=== PATIENT | male | born 1990 | race Caucasian/White ===

== ENCOUNTER 2016-11-23 13:04 | Emergency (ER) | payer MEDICARE, MEDICAID ==
[2016-11-23 13:10] VITALS: TEMP 98; O2SAT 99
--- NOTE | 2016-11-23 14:29 | ED PDOC ---
HPI: General Adult Time Seen by Provider: 11/23/16 13:52 Chief Complaint (Nursing): ENT Problem Chief Complaint (Provider): difficulty swallowing History Per: Patient (26 y/o male h/o schizophrenia sent by [facility] for evaluation of difficulty swallowing saliva. Denies any sore throat/fevers/ chills. Has been able to drink water without difficulty. Is on zyprexa otherwise.) Past Medical History Reviewed: Historical Data, Nursing Documentation, Vital Signs Vital Signs: Last Vital Signs Temp 98.0 F 11/23/16 13:07 Pulse 100 H 11/23/16 13:07 Resp 18 11/23/16 13:07 BP 132/92 H 11/23/16 13:07 Pulse Ox 99 11/23/16 14:29 - Medical History PMH: Anxiety, Bipolar Disorder, Depression, Schizophrenia Denies: Diabetes (pt denied), Hepatitis (pt denied), HIV (pt denied), HTN ( pt denied), Chronic Kidney Disease, Seizures (pt denied), Sexually Transmitted Disease (pt denied) - Family History Family History: States: Unknown Family Hx - Immunization History Hx Tetanus Toxoid Vaccination: No Hx Influenza Vaccination: No Hx Pneumococcal Vaccination: No - Home Medications Home Medications: Ambulatory Orders Medication Instructions Recorded Citalopram [celEXA] 20 mg PO DAILY 09/30/15 [place] Carbonate [[place] 300 mg PO DAILY 09/30/15 Carbonate 300MG] [place] Carbonate [[place] 600 mg PO DAILY 09/30/15 Carbonate] Paliperidone [Invega] 3 mg PO DAILY 09/30/15 - Allergies Allergies/Adverse Reactions: Allergies Allergy/AdvReac Type Severity Reaction Status Date / Time No Known Allergies Allergy Verified 11/23/16 14:05 Review of Systems ROS Statement: Except As Marked, All Systems Reviewed And Found Negative Physical Exam - Reviewed Nursing Documentation Reviewed: Yes Vital Signs Reviewed: Yes - Physical Exam Appears: Positive for: Well, Non-toxic, No Acute Distress Head Exam: Positive for: ATRAUMATIC, NORMAL INSPECTION, NORMOCEPHALIC Skin: Positive for: Normal Color, Warm, DRY Eye Exam: Positive for: EOMI, Normal appearance, PERRL ENT: Positive for: Normal ENT Inspection Neck: Positive for: Normal, Painless ROM Cardiovascular/Chest: Positive for: Regular Rate, Rhythm Respiratory: Positive for: CNT, Normal Breath Sounds Gastrointestinal/Abdominal: Positive for: Normal Exam, Bowel Sounds, Soft Back: Positive for: Normal Inspection Extremity: Positive for: Normal ROM Neurologic/Psych: Positive for: Alert, Oriented - Laboratory Results Result Diagrams: 11/23/16 15:11 11/23/16 15:11 - ECG O2 Sat by Pulse Oximetry: 99 - Progress ED Course And Treament: strep A neg Patient tolerating fluids in ED Soft tissue xry: negative for acute findings. Disposition - Clinical Impression Clinical Impression: Difficulty swallowing - Patient ED Disposition Is Patient to be Admitted: No - Disposition Referrals: Pedro Hicks MD [Staff Provider] - Disposition: Routine/Home Disposition Time: 16:50 Condition: FAIR Instructions: Dysphagia (ED)
[2016-11-23 15:20] LABS: BASO # 0.1 K/uL (0.0-0.2); BASO % 0.8 % (0.0-2.0); EOS # 0.2 K/uL (0.0-0.7); EOS % 2.4 % (0.0-4.0); HEMATOCRIT 41.9 % (35.0-51.0); LYMPH # 3.6 K/uL (1.0-4.3); LYMPH % 37.5 % (20.0-40.0); MEAN CORPUSCULAR HEMOGLOBIN 28.3 pg (27.0-31.0); MEAN CORPUSCULAR HGB CONC 33.2 g/dL (33.0-37.0); MEAN PLATELET VOLUME 7.8 fl (7.2-11.7); MONO # 0.7 K/uL (0.0-0.8); MONO % 7.6 % (0.0-10.0); NEUT % 51.7 % (50.0-75.0); NRBC % 0.2 % (0.0-0.0); RED CELL DISTRIBUTION WIDTH 13.9 % (11.5-14.5); WHITE BLOOD COUNT 9.6 K/uL (4.8-10.8)
[2016-11-23 15:26] LABS: MEAN CELL VOLUME 85.1 fl (80.0-94.0)
[2016-11-23 15:30] LABS: BLOOD UREA NITROGEN 11 mg/dl (9-20); CARBON DIOXIDE 26 mmol/L (22-30); CHLORIDE 102 mmol/L (98-107); GFR AFRICAN-AMERICAN > 60; GLUCOSE,RANDOM 93 mg/dL (75-110); SODIUM 137 mmol/l (132-148)
[2016-11-23 15:32] LABS: POTASSIUM 4.1 MMOL/L (3.6-5.0)
--- NOTE | 2016-11-23 16:23 | RAD ---
PROCEDURE: Soft tissue neck HISTORY: difficulty with swallowing COMPARISON: None TECHNIQUE: Standard protocol for this study/examination. FINDINGS: No prevertebral or paravertebral soft tissue abnormalities. No visualized/radiopaque foreign body IMPRESSION: No significant or acute findings to account for/ related to the clinical presentation.
[2016-11-23 17:12] VITALS: BP 133/70; PULSE 82; RESP 20
== END 2016-11-23 17:26 | disposition home or self-care (01) ==
LOC: H.ER 13:04
DX: R13.10 Dysphagia, unspecified (principal); F20.9 Schizophrenia, unspecified

== ENCOUNTER 2017-09-16 20:58 | Emergency (ER) | payer MEDICARE, MEDICAID ==
[2017-09-16 21:22] VITALS: BP 137/92; PULSE 80; RESP 18; TEMP 98.8; O2SAT 98
--- NOTE | 2017-09-16 22:15 | ED PDOC ---
HPI: Headache Chief Complaint (Provider): Frontal headache Additional History Per: Patient Additional Complaint(s): This is 27 y/o male with pmh of bipolar, anxiety, depression and schizophrenia comes to the ED c/o 7 days history of frontal headache which started after he got his teeth braces fixed. Pain comes and goes, can last up to few hours, pressure like, 8/10 severity, nonradiating, Advil didnt help at home, phonophobia but denies photophobia. Pain is associated with nausea, drowsiness, denies vomiting, visual changes, neck stiffness, runny nose, cough, ear pain, sob or chest pain. Patient is taking few psych medications. <Jeanine Barcenas - Last Filed: 09/17/17 00:16> <Bianca Casas - Last Filed: 09/17/17 17:29> Time Seen by Provider: 09/16/17 21:25 Chief Complaint (Nursing): Headache Supervising Attending Note - Supervising Attending Note The Documented history was done by the: Physician Private Watchman, Attending Physician The documented physical exam was done by the: Physician Private Watchman, Attending Physician - Attestation: I have personally seen and examined this patient.: Yes I have fully participated in the care of the patient.: Yes I have reviewed all pertinent clinical information: Yes <Bianca Casas - Last Filed: 09/17/17 17:29> Past Medical History Reviewed: Vital Signs Vital Signs: Last Vital Signs Temp 98.8 F 09/16/17 21:20 Pulse 80 09/16/17 21:20 Resp 18 09/16/17 21:20 BP 137/92 H 09/16/17 21:20 Pulse Ox 98 09/16/17 21:20 - Medical History PMH: Anxiety, Bipolar Disorder, Depression, Schizophrenia Denies: Diabetes (pt denied), Hepatitis (pt denied), HIV (pt denied), HTN ( pt denied), Chronic Kidney Disease, Seizures (pt denied), Sexually Transmitted Disease (pt denied) - Surgical History Surgical History: Denies: Appendectomy - Family History Family History: States: No Known Family Hx - Living Arrangements Living Arrangements: With Family - Social History Current smoker - smoking cessation education provided: No Ex-Smoker (has not smoked in the last 12 months): Yes Alcohol: None Drugs: Denies - Immunization History Hx Tetanus Toxoid Vaccination: No Hx Influenza Vaccination: No Hx Pneumococcal Vaccination: No <Jeanine Barcenas - Last Filed: 09/17/17 00:16> Vital Signs: Last Vital Signs Temp 98.8 F 09/16/17 21:20 Pulse 80 09/16/17 21:20 Resp 18 09/16/17 21:20 BP 137/92 H 09/16/17 21:20 Pulse Ox 98 09/17/17 00:16 <Bianca Casas - Last Filed: 09/17/17 17:29> - Home Medications Home Medications: Ambulatory Orders Medication Instructions Recorded Citalopram [celEXA] 20 mg PO DAILY 09/30/15 [place] Carbonate [[place] 300 mg PO DAILY 09/30/15 Carbonate 300MG] [place] Carbonate [[place] 600 mg PO DAILY 09/30/15 Carbonate] Paliperidone [Invega] 3 mg PO DAILY 09/30/15 Acetaminophen/Butalbital/Caf 1 tab PO TID PRN #20 tab 09/16/17 [Fioricet] Naproxen [Naprosyn] 1 tab PO BID PRN #30 tab 09/16/17 - Allergies Allergies/Adverse Reactions: Allergies Allergy/AdvReac Type Severity Reaction Status Date / Time No Known Allergies Allergy Verified 11/23/16 14:05 Review of Systems Constitutional: Negative for: Fever Eyes: Negative for: Pain, Vision Change ENT: Negative for: Ear Pain Cardiovascular: Negative for: Chest Pain Respiratory: Negative for: Cough, Shortness of Breath Gastrointestinal: Positive for: Nausea. Negative for: Vomiting, Abdominal Pain Genitourinary Male: Negative for: Dysuria, Incontinence Musculoskeletal: Negative for: Neck Pain, Shoulder Pain Skin: Negative for: Rash Neurological: Negative for: Weakness, Numbness, Confusion <Jeanine Barcenas - Last Filed: 09/17/17 00:16> Physical Exam - Physical Exam Appears: Positive for: Well Head Exam: Positive for: ATRAUMATIC, NORMAL INSPECTION, NORMOCEPHALIC (no tenderness ) Skin: Positive for: Normal Color Eye Exam: Positive for: Normal appearance, EOMI, PERRL ENT: Positive for: Normal ENT Inspection Neck: Positive for: Normal, Painless ROM Cardiovascular/Chest: Positive for: Regular Rate, Rhythm, Chest Non Tender. Negative for: Edema, JVD, Murmur Respiratory: Positive for: Normal Breath Sounds Gastrointestinal/Abdominal: Positive for: Normal Exam Neurologic/Psych: Positive for: Alert, solidworks drafter II-XII, Oriented. Negative for: Motor/Sensory Deficits <Jeanine Barcenas - Last Filed: 09/17/17 00:16> - Laboratory Results Result Diagrams: 09/16/17 23:00 09/16/17 23:00 - ECG O2 Sat by Pulse Oximetry: 98 - Progress ED Course And Treament: 27 y/o male with headache for 7 days - CBC, CMP, Mg and Phos - [place] level - Tylenol 975mg - Toradol 15mg - Reevaluation Case discussed with Dr. Casas CBC, CMP reviewed, unremarkable [place] 0.5 L, discussed with patient Re-evaluation Time: 23:35 Condition: Improved <Jeanine Barcenas - Last Filed: 09/17/17 00:16> - Laboratory Results Result Diagrams: 09/16/17 23:00 09/16/17 23:00 <Bianca Casas - Last Filed: 09/17/17 17:29> Medical Decision Making Medical Decision Making: Headache <Jeanine Barcenas - Last Filed: 09/17/17 00:16> Disposition - Patient ED Disposition Is Patient to be Admitted: No - Disposition Disposition Time: 00:15 <Jeanine Barcenas - Last Filed: 09/17/17 00:16> <Bianca Casas - Last Filed: 09/17/17 17:29> - Clinical Impression Clinical Impression: Acute headache - Disposition Referrals: [facility] [Provider Group] - 09/18/17 Condition: IMPROVED Additional Instructions: PLEASE FOLLOW UP WITH YOUR DOCTOR IN 2-3 DAYS CONTINUE YOUR REGULAR MEDICATIONS PRESCRIBED RETURN TO ER FOR WORSENING SYMPTOMS Prescriptions: Acetaminophen/Butalbital/Caf [Fioricet] 1 tab PO TID PRN #20 tab PRN Reason: SEVERE HEADACHE ONLY Naproxen [Naprosyn] 1 tab PO BID PRN #30 tab PRN Reason: Headache Instructions: Acute Headache (ED)
[2017-09-16 23:19] LABS: BLOOD UREA NITROGEN 13 mg/dl (9-20); GFR AFRICAN-AMERICAN > 60; GFR NON-AFRICAN AMERICAN > 60
[2017-09-16 23:20] LABS: ALB/GLOB RATIO 1.4 (1.0-2.1); ALBUMIN 4.5 g/dL (3.5-5.0); ALT/SGPT 30 U/L (21-72); AST/SGOT 23 U/L (17-59); CALCIUM 9.7 mg/dL (8.4-10.2); MAGNESIUM 2.1 MG/DL (1.6-2.3)
[2017-09-16 23:25] LABS: BASO # 0.1 K/uL (0.0-0.2); BASO % 0.6 % (0.0-2.0); EOS # 0.1 K/uL (0.0-0.7); HEMOGLOBIN 13.4 g/dL (12.0-18.0); LYMPH # 3.6 K/uL (1.0-4.3); MEAN CELL VOLUME 88.5 fl (80.0-94.0); MEAN CORPUSCULAR HEMOGLOBIN 29.3 pg (27.0-31.0); MEAN CORPUSCULAR HGB CONC 33.1 g/dL (33.0-37.0); MEAN PLATELET VOLUME 9.1 fl (7.2-11.7); MONO # 0.7 K/uL (0.0-0.8); MONO % 7.3 % (0.0-10.0); NEUT % 53.1 % (50.0-75.0); NRBC % 0.1 % (0.0-0.0); RBC 4.59 Mil/uL (4.40-5.90); RED CELL DISTRIBUTION WIDTH 13.7 % (11.5-14.5); WHITE BLOOD COUNT 9.4 K/uL (4.8-10.8)
== END 2017-09-17 00:07 | disposition home or self-care (01) ==
LOC: H.ER 20:58
DX: R51 Headache (principal); F20.9 Schizophrenia, unspecified; F31.9 Bipolar disorder, unspecified; F41.9 Anxiety disorder, unspecified
CPT/HCPCS: 80053; 80178; 83735; 84100; 85025; 96374; 99283; J1885

== ENCOUNTER 2017-12-05 16:47 | Emergency (ER) | payer MEDICARE, MEDICAID ==
[2017-12-05 16:56] VITALS: BP 143/88; PULSE 88; RESP 20; TEMP 98; O2SAT 97
--- NOTE | 2017-12-05 18:11 | ED PDOC ---
HPI: Psych/Substance Abuse Time Seen by Provider: 12/05/17 17:02 Chief Complaint (Nursing): Psychiatric Evaluation Chief Complaint (Provider): Psychiatric Evaluation History Per: Patient History/Exam Limitations: no limitations Onset/Duration Of Symptoms: Mins Current Symptoms Are (Timing): Still Present Suicide/Self Injury Attempted (Context): None Associated Symptoms: Depression. denies: Suicidal Thoughts, Suicidal Plan Additional Complaint(s): 27 year old male presents to the ED for psychiatric evaluation due to aggressive behavior worsening since September. Patient states the family is concerned because he has been exhibiting more aggressive behavior. Patient reports he has a history of Bipolar Type Two Disorder and Schizoaffective disorders but is complaint with medication. In September, patient reports he found out that the girl he is in love with is getting and it constantly upsets him because he [facility] basis. Patient states his mother was invited to the bridal shower and when he thinks about this he becomes more aggressive. Patient also reports he is upset about putting on a lot of weight recently and feels like he looks like "Benjamin". Today, patient told his mother he wants to have a girlfriend and the mother replied that he should get his act together, thus causing him to act aggressive and EMS was called to bring patient to ED. Denies suicidal and homicidal ideation, suicidal attempts in the past, hallucinations, and physical complaints. Past Medical History Vital Signs: Last Vital Signs Temp 98.0 F 12/05/17 16:52 Pulse 88 12/05/17 16:52 Resp 20 12/05/17 16:52 BP 143/88 12/05/17 16:52 Pulse Ox 97 12/05/17 16:52 - Medical History PMH: Anxiety, Bipolar Disorder, Depression, Schizophrenia - Surgical History Surgical History: Denies: Appendectomy - Family History Family History: States: Unknown Family Hx - Social History Current smoker - smoking cessation education provided: No Drugs: Denies - Home Medications Home Medications: Ambulatory Orders Medication Instructions Recorded Citalopram [celEXA] 20 mg PO DAILY 09/30/15 [place] Carbonate [[place] 300 mg PO DAILY 09/30/15 Carbonate 300MG] [place] Carbonate [[place] 600 mg PO DAILY 09/30/15 Carbonate] Paliperidone [Invega] 3 mg PO DAILY 09/30/15 Acetaminophen/Butalbital/Caf 1 tab PO TID PRN #20 tab 09/16/17 [Fioricet] Naproxen [Naprosyn] 1 tab PO BID PRN #30 tab 09/16/17 - Allergies Allergies/Adverse Reactions: Allergies Allergy/AdvReac Type Severity Reaction Status Date / Time No Known Allergies Allergy Verified 12/05/17 16:52 Review of Systems ROS Statement: Except As Marked, All Systems Reviewed And Found Negative Psych: Positive for: Depression. Negative for: Suicidal ideation Physical Exam - Reviewed Nursing Documentation Reviewed: Yes Vital Signs Reviewed: Yes - Physical Exam Comments: GENERAL APPEARANCE: Patient is awake, alert, oriented x 3, in no acute distress. SKIN: Warm, dry; (-) cyanosis EYES: (-) conjunctival pallor, (-) scleral icterus, (-) nystagmus. ENMT: Mucous membranes moist. Airway patent: (-) stridor. NECK: Supple, FROM (-) tenderness, (-) stiffness, (-) lymphadenopathy. CHEST AND RESPIRATORY: (-) rales, (-) rhonchi, (-) wheezes; breath sounds equal. ABDOMEN: Soft, (-) distention, (-) tenderness, (-) guarding. NEURO AND PSYCH: Mental status as above. Affect: Flat, calm, and cooperative. nurse research: grossly intact. Pupils equal and reactive; EOMI; (-) facial asymmetry; tongue and uvula midline. Strength symmetric. - ECG O2 Sat by Pulse Oximetry: 97 (RA) Pulse Ox Interpretation: Normal Medical Decision Making Medical Decision Making: Clinical impression: Psychiatric Evaluation Time: 1742 Plan: -- Crisis Evaluation 1899 Per crisis evaluation, patient to be discharged with the diagnosis of Schizoaffective disorder, Bipolar Type II per Dr Olmstead. On exam, patient remains AAOx3, in no acute distress. On exam, neck is supple, lungs CTA, cardiac RRR, abdomen is soft and non-tender, neuro exam shows no focal findings. Diagnostic results d/w the patient in great detail. Dx of Schizoaffective disorder, Bipolar Type II d/w the patient. Based on history, exam and diagnostic results plan will be for discharge and outpatient follow up. Advised to follow up with primary care physician in 1-2 days without fail. Return to the emergency room at any time for any new or worsening symptoms. Patient states he fully agrees with and understands discharge instructions. States that he agrees with the plan and disposition. Verbalized and repeated discharge instructions and plan. I have given the patient opportunity to ask any additional questions. Scribe Attestation: Documented by Ayden Bronson, acting as a scribe for Misa Solomon PA-C. Provider Scribe Attestation: All medical record entries made by the Scribe were at my direction and personally dictated by me. I have reviewed the chart and agree that the record accurately reflects my personal performance of the history, physical exam, medical decision making, and the department course for this patient. I have also personally directed, reviewed, and agree with the discharge instructions and disposition. Disposition - Clinical Impression Clinical Impression: Bipolar disorder, Schizoaffective disorder - Patient ED Disposition Is Patient to be Admitted: No Counseled Patient/Family Regarding: Diagnosis, Need For Followup - Disposition Referrals: [facility] [Outside] [facility] [Outside] Disposition: Routine/Home Disposition Time: 19:06 Condition: FAIR Instructions: Bipolar Disorder, Schizoaffective Disorder Forms: [employer] (Lithuanian) Print Language: CROATIAN - POA Present On Arrival: None
== END 2017-12-05 20:46 | disposition home or self-care (01) ==
LOC: H.ER 16:47
DX: F31.9 Bipolar disorder, unspecified (principal); F25.9 Schizoaffective disorder, unspecified; F41.9 Anxiety disorder, unspecified

== ENCOUNTER 2017-12-22 20:15 | Emergency (ER) | payer MEDICARE, MEDICAID ==
[2017-12-22 20:27] VITALS: BP 149/87; PULSE 84; RESP 16; TEMP 97.5; O2SAT 98
--- NOTE | 2017-12-22 21:30 | ED PDOC ---
HPI: Psych/Substance Abuse Time Seen by Provider: 12/22/17 20:28 Chief Complaint (Nursing): Psychiatric Evaluation Chief Complaint (Provider): Psychiatric Evaluation History Per: Patient, Family (mother) History/Exam Limitations: no limitations Onset/Duration Of Symptoms: Days (x1) Current Symptoms Are (Timing): Still Present Additional Complaint(s): 27 year old male with medical history of anxiety, bipolar disorder and schizophrenia, presents to the emergency department with mother for an evaluation of dry mouth status post recent change in Seroquel dosage. He denies any shortness of breath, chest pain or rash. Patient states that he saw a new psychiatrist on 12/18/17 who advised taking Seroquel 200mg in the morning and 400mg at night, as patient became increasingly impulsive. Normally he only takes 400mg at night. He states impulsions resolved and "felt great" since starting new Seroquel regimen. Upon the following day, patient reports having dry mouth and contacted his doctor but did not receive a response until yesterday, in which, she recommended Seroquel 100mg in the morning and 400mg before bed. Currently, mother reports that patient seems more stable and happier. Psychiatrist: Ela Sahni MD Past Medical History Reviewed: Historical Data, Nursing Documentation, Vital Signs Vital Signs: Last Vital Signs Temp 97.5 F L 12/22/17 20:22 Pulse 84 12/22/17 20:22 Resp 16 12/22/17 20:22 BP 149/87 12/22/17 20:22 Pulse Ox 98 12/22/17 20:22 - Medical History PMH: Anxiety, Bipolar Disorder, Depression, Schizophrenia Denies: Diabetes (pt denied), Hepatitis (pt denied), HIV (pt denied), HTN ( pt denied), Chronic Kidney Disease, Seizures (pt denied), Sexually Transmitted Disease (pt denied) - Surgical History Surgical History: Denies: Appendectomy - Family History Family History: States: Unknown Family Hx - Social History Current smoker - smoking cessation education provided: No Alcohol: None Drugs: Denies - Immunization History Hx Tetanus Toxoid Vaccination: No Hx Influenza Vaccination: No Hx Pneumococcal Vaccination: No - Home Medications Home Medications: Ambulatory Orders Medication Instructions Recorded Citalopram [celEXA] 20 mg PO DAILY 09/30/15 [place] Carbonate [[place] 300 mg PO DAILY 09/30/15 Carbonate 300MG] [place] Carbonate [[place] 600 mg PO DAILY 09/30/15 Carbonate] Paliperidone [Invega] 3 mg PO DAILY 09/30/15 Acetaminophen/Butalbital/Caf 1 tab PO TID PRN #20 tab 09/16/17 [Fioricet] Naproxen [Naprosyn] 1 tab PO BID PRN #30 tab 09/16/17 - Allergies Allergies/Adverse Reactions: Allergies Allergy/AdvReac Type Severity Reaction Status Date / Time No Known Allergies Allergy Verified 12/05/17 16:52 Review of Systems ROS Statement: Except As Marked, All Systems Reviewed And Found Negative ENT: Positive for: Other (dry mouth) Psych: Positive for: Other ("feeling great") Physical Exam - Reviewed Nursing Documentation Reviewed: Yes Vital Signs Reviewed: Yes - Physical Exam Appears: Positive for: Well, Non-toxic, No Acute Distress Skin: Positive for: Normal Color, Warm. Negative for: Rash ENT: Positive for: Normal ENT Inspection, Pharynx Is (within normal limits with moist mucous membranes; able to swallow saliva without difficulty). Negative for: Pharyngeal Erythema, Tonsillar Exudate, Tonsillar Swelling Cardiovascular/Chest: Positive for: Regular Rate, Rhythm Respiratory: Positive for: Normal Breath Sounds Neurologic/Psych: Positive for: Alert (x3), Oriented, Mood/Affect (happy, calm and cooperative), Other (speaking full sentences). Negative for: Motor/Sensory Deficits, Aphasia - ECG O2 Sat by Pulse Oximetry: 98 (RA) Pulse Ox Interpretation: Normal Medical Decision Making Medical Decision Making: Initial Impression: Medication side effects Pt. advised to use OTC Biotene and to contact Dr. Sahni tomorrow for further evaluation. Denies SI/HI, hallucinations. Advised to return to ED immediately if symptoms worsen or any mood changes occur. Both pt. and mother agree to plan. Scribe Attestation: Documented by Ginny Trujillo, acting as a scribe for Johnny Ha PA-C. Provider Scribe Attestation: All medical record entries made by the Scribe were at my direction and personally dictated by me. I have reviewed the chart and agree that the record accurately reflects my personal performance of the history, physical exam, medical decision making, and the department course for this patient. I have also personally directed, reviewed, and agree with the discharge instructions and disposition. Disposition - Clinical Impression Clinical Impression: Medication side effect - Patient ED Disposition Is Patient to be Admitted: No Counseled Patient/Family Regarding: Diagnosis - Disposition Referrals: [facility] [Outside] Disposition: Routine/Home Disposition Time: 21:07 Condition: STABLE Additional Instructions: Take Biotene as directed Contact Dr. Sahni for further evaluation. Return to ED immediately if symptoms worsen. Instructions: Side Effects From Medicines Forms: [employer] (Kuwaiti) Print Language: BELARUSIAN
== END 2017-12-22 21:07 | disposition home or self-care (01) ==
LOC: H.ER 20:15
DX: R68.2 Dry mouth, unspecified (principal); Z86.59 Personal history of other mental and behavioral disorders; Z00.8 Encounter for other general examination

== ENCOUNTER 2018-02-24 18:23 | Inpatient (IN) | payer MEDICARE, MEDICAID ==
--- NOTE | 2018-02-24 18:51 | ED PDOC ---
HPI: Psych/Substance Abuse Time Seen by Provider: 02/24/18 18:41 Chief Complaint (Nursing): Psychiatric Evaluation Chief Complaint (Provider): crisis eval History Per: Patient Additional Complaint(s): 27 y/o M with history of bipolar disorder and depression presents to ED for crisis eval. He states he is increasingly depressed and feels more agitated lately despite taking all of his psych meds which include Abilify, Seroquel, clonazepam and lithium. Patient denies suicidal or homicidal ideation. He denies alcohol or drug use. PMD: Dr. Eduardo Psychiatrist: Dr. Sahni Past Medical History Reviewed: Historical Data, Nursing Documentation, Vital Signs Vital Signs: Last Vital Signs Temp 98 F 02/24/18 18:28 Pulse 88 02/24/18 18:28 Resp 20 02/24/18 18:28 BP 147/77 02/24/18 18:28 Pulse Ox 100 02/24/18 18:28 - Medical History PMH: Anxiety, Bipolar Disorder, Depression, Schizophrenia - Surgical History Surgical History: No Surg Hx, Endoscopy Other surgeries: Left shoulder surgery, right ankle surgery, wisdom tooth extraction - Family History Family History: States: No Known Family Hx - Living Arrangements Living Arrangements: With Family - Social History Current smoker - smoking cessation education provided: No Alcohol: None Drugs: Denies - Home Medications Home Medications: Ambulatory Orders Medication Instructions Recorded Aripiprazole [Abilify] 20 mg PO HS 02/24/18 Clonazepam [Klonopin] 0.5 mg PO BID 02/24/18 [place] Carbonate [[place] 300 tab PO TID 02/24/18 Carbonate 300MG] Multivit-Minerals/FA/Lycopene [One 1 each PO DAILY 02/24/18 Daily For Men Tablet] [id number] Ethyl Esters 1 GM 1 gm PO DAILY 02/24/18 [Lovaza] QUEtiapine [SEROquel XR] 50 mg PO HS 02/24/18 buPROPion SR [Wellbutrin SR] 100 mg PO DAILY 02/24/18 - Allergies Allergies/Adverse Reactions: Allergies Allergy/AdvReac Type Severity Reaction Status Date / Time No Known Allergies Allergy Verified 02/24/18 18:28 Review of Systems ROS Statement: Except As Marked, All Systems Reviewed And Found Negative Psych: Positive for: Depression, Other (agitation). Negative for: Psychosis, Suicidal ideation Physical Exam - Reviewed Nursing Documentation Reviewed: Yes Vital Signs Reviewed: Yes - Physical Exam Appears: Positive for: Well, Non-toxic, No Acute Distress Skin: Positive for: Normal Color. Negative for: Rash Eye Exam: Positive for: Normal appearance Cardiovascular/Chest: Positive for: Regular Rate, Rhythm Respiratory: Positive for: Normal Breath Sounds. Negative for: Respiratory Distress Extremity: Positive for: Normal ROM Neurologic/Psych: Positive for: Alert, Oriented - Laboratory Results Result Diagrams: 02/24/18 19:39 02/24/18 19:39 - ECG O2 Sat by Pulse Oximetry: 100 Pulse Ox Interpretation: Normal - Other Rad CXR X-Ray: Interpreted by Me, Viewed By Me X-Ray Interpretation: no acute finding Medical Decision Making Medical Decision Makin27 y/o here for crisis eval Plan: Crisis consult CBC CMP BAL UDS UA CXR Hernando level As per crisis counselor and psychiatrist senior commissions analyst, Dr. Casillas/Carlito Garrison NP patient does meet criteria for admission. Patient agrees to stay and signed himself in. Patient is medically stable for psychiatric admission. Disposition - Clinical Impression Clinical Impression: Schizoaffective disorder - Disposition Disposition Time: 21:11 Condition: FAIR Forms: [employer] ([place]) - Pt Status Changed To: Hospital Disposition Of: Inpatient - Admit Certification Admit to Inpatient:: After my assessment, the patient will require hospitalization for at least two midnights. This is because of the severity of symptoms shown, intensity of services needed, and/or the medical risk in this patient being treated as an outpatient. Results - Lab Results Lab Results: 02/24/18 02/24/18 02/24/18 19:39 19:39 19:39 WBC RBC Hgb Hct MCV MCH MCHC RDW Plt Count MPV Neut % (Auto) Lymph % (Auto) [place] % (Auto) Eos % (Auto) Baso % (Auto) Neut # (Auto) Lymph # (Auto) [place] # (Auto) Eos # (Auto) Baso # (Auto) Sodium Potassium Chloride Carbon Dioxide Anion Gap BUN Creatinine Est GFR ( Amer) Est GFR (Non-Af Amer) Random Glucose Calcium Total Bilirubin AST ALT Alkaline Phosphatase Total Protein Albumin Globulin Albumin/Globulin Ratio Urine Color Colorless Urine Clarity Clear Urine pH 7.0 Ur Specific [place] < 1.005 Urine Protein Negative Urine Glucose (UA) Neg Urine Ketones Negative Urine Blood Negative Urine Nitrate Negative Urine Bilirubin Negative Urine Urobilinogen 0.2-1.0 Ur Leukocyte Esterase Neg Urine Opiates Screen Negative Urine Methadone Screen Negative Ur Barbiturates Screen Negative Ur Phencyclidine Scrn Negative Ur Amphetamines Screen Negative U Benzodiazepines Scrn Negative [place] 0.2 L U Oth Cocaine Metabols Negative U Cannabinoids Screen Negative Alcohol, Quantitative 02/24/18 02/24/18 19:39 19:39 WBC 8.6 RBC 4.52 Hgb 13.7 Hct 41.0 MCV 90.7 MCH 30.2 MCHC 33.3 RDW 13.7 Plt Count 213 MPV 8.3 Neut % (Auto) 59.8 Lymph % (Auto) 32.8 [place] % (Auto) 6.4 Eos % (Auto) 0.5 Baso % (Auto) 0.5 Neut # (Auto) 5.1 Lymph # (Auto) 2.8 [place] # (Auto) 0.6 Eos # (Auto) 0.0 Baso # (Auto) 0.0 Sodium 143 Potassium 3.7 Chloride 105 Carbon Dioxide 27 Anion Gap 15 BUN 10 Creatinine 0.8 Est GFR ( Amer) > 60 Est GFR (Non-Af Amer) > 60 Random Glucose 96 Calcium 9.4 Total Bilirubin 0.6 AST 18 ALT 24 Alkaline Phosphatase 42 Total Protein 7.7 Albumin 4.4 Globulin 3.3 Albumin/Globulin Ratio 1.3 Urine Color Urine Clarity Urine pH Ur Specific [place] Urine Protein Urine Glucose (UA) Urine Ketones Urine Blood Urine Nitrate Urine Bilirubin Urine Urobilinogen Ur Leukocyte Esterase Urine Opiates Screen Urine Methadone Screen Ur Barbiturates Screen Ur Phencyclidine Scrn Ur Amphetamines Screen U Benzodiazepines Scrn [place] U Oth Cocaine Metabols U Cannabinoids Screen Alcohol, Quantitative < 10
[2018-02-24 19:42] LABS: BASO % 0.5 % (0.0-2.0); EOS % 0.5 % (0.0-4.0); HEMOGLOBIN 13.7 g/dL (12.0-18.0); LYMPH # 2.8 K/uL (1.0-4.3); LYMPH % 32.8 % (20.0-40.0); MEAN CELL VOLUME 90.7 fl (80.0-94.0); MEAN CORPUSCULAR HEMOGLOBIN 30.2 pg (27.0-31.0); MEAN CORPUSCULAR HGB CONC 33.3 g/dL (33.0-37.0); MEAN PLATELET VOLUME 8.3 fl (7.2-11.7); MONO # 0.6 K/uL (0.0-0.8); MONO % 6.4 % (0.0-10.0); NEUT # 5.1 K/uL (1.8-7.0); NEUT % 59.8 % (50.0-75.0); RBC 4.52 Mil/uL (4.40-5.90); RED CELL DISTRIBUTION WIDTH 13.7 % (11.5-14.5); WHITE BLOOD COUNT 8.6 K/uL (4.8-10.8)
[2018-02-24 19:54] LABS: URINE BILIRUBIN NEGATIVE (NEGATIVE); URINE BLOOD NEGATIVE (NEGATIVE); URINE CLARITY CLEAR (Clear); URINE COLOR COLORLESS (YELLOW); URINE GLUCOSE (UA) NEG (Normal); URINE LEUKOCYTE ESTERASE NEG Leu/uL (Negative); URINE PROTEIN NEGATIVE (NEGATIVE); URINE UROBILINOGEN 0.2-1.0 mg/dL (0.2-1.0)
[2018-02-24 19:55] LABS: ALB/GLOB RATIO 1.3 (1.0-2.1); ALBUMIN 4.4 g/dL (3.5-5.0); ALT/SGPT 24 U/L (21-72); AST/SGOT 18 U/L (17-59); BLOOD UREA NITROGEN 10 mg/dl (9-20); CALCIUM 9.4 mg/dL (8.4-10.2); GFR AFRICAN-AMERICAN > 60; GFR NON-AFRICAN AMERICAN > 60
[2018-02-24 20:05] LABS: BARBITURATES, UR NEGATIVE (NEGATIVE); BENZODIAZEPINES, UR NEGATIVE (NEGATIVE); OPIATES, UR NEGATIVE (NEGATIVE); PHENCYCLIDINE, UR NEGATIVE (NEGATIVE)
[2018-02-24] MEDS ORDERED: Omega-3-Acid Ethyl Esters 1 GM Cap PO STA (20:47)
[2018-02-24 21:43] VITALS: O2SAT 98
[2018-02-24] MEDS ORDERED: Alum-Mag Hydrox-Simethicone Susp (30 mL) PO PRN (22:51)
[2018-02-24] MEDS ORDERED: DiphenhydrAMINE 50 mg/ml Inj IM PRN (22:51)
[2018-02-24] MEDS ORDERED: Magnesium Hydroxide Susp 30 ml UD PO PRN (22:51)
--- NOTE | 2018-02-24 23:58 | PCM.BM ---
<Evy Gomez - Last Filed: 02/24/18 23:56> Treatment Plan Problems - Problems identified on initial assessmt Hopelessness/Helplessness Date Initiated: 02/24/18 Time Initiated: 23:56 Assessment reference: NA Status: Active Social Isolation Date Initiated: 02/24/18 Time Initiated: 23:57 Assessment reference: NA Status: Active Altered Sleep Patterns Date Initiated: 02/24/18 Time Initiated: 23:57 Assessment reference: NA Status: Active Treatment assets and liabiliti Patient Assests: cooperative, educated, ADL independent, physically healthy, good support system, negotiates basic needs, financial stabiity Patient Liabilities: relationship conflicts - Milieu Protocol Maintain good personal hygiene: daily Encourage regular showers, every shift Remind patient to perform daily oral care Conduct patient checks and document Observation sheet: Q15 minutes Maintain personal safety: every shift Educate patient to report safety concerns to staff, every shift Monitor environment for contraband/sharps Medication safety: Monitor for expected outcome, potential side effects: every shift, Assess barriers to learning: every shift, Assess readiness for medication education: every shift <Lulú Daugherty - Last Filed: 02/28/18 16:15> Treatment assets and liabiliti Patient Assests: adapts well, cooperative, educated, insightful, motivated, ADL independent, physically healthy, good support system, negotiates basic needs, good past tx response, financial stabiity, cognitively intact Patient Liabilities: relationship conflicts Family Contact Family involvement: Family/SO is involved Family contact: Patient agrees to contact, Family has been contacted by patient , Telephone contact initiated by staff Family contact name: (Julia [phone]) Family contacted how many times per week?: 2 Family contact comment: [employer] placed call to patients mother (Julia [phone] ) at 1pm to discuss precursors to pts hospitalization, collect further collateral and address any family concerns. Pts mother reported she was driving and unable to speak. Manager [employer] to place call at later time. - Outside Agency Agency 1 Care involvment: Following patient during stay, Other Agency contact name: [facility] Agency contact number: [phone] - Goals for Treatment Patient goals for treatment: Patient to continue stabilization on 3NP through medication management and group/supportive therapy to address sxs of depression, impulsivity and lability. Patient to be encouraged to attend groups regularly to promote self-awareness, socialization and improve insight,compliance, coping skills and self-esteem. Patient to be provided with referral for appropriate level of aftercare to reduce risk of future hospitalizations and ensure safety in the community. Discharge/Continuing Care - Education Needs Education Needs: Family Medication, Family Diagnosis/Disease Process, Family Coping Skills, Family Anger Management skills, Family Aftercare Safety Plan, Patient Medication, Patient Diagnosis/Disease Process, Patient Coping Skills, Patient Anger Management skills, Patient Aftercare Safety Plan - Discharge Discharge Criteria: Tolerates medication w/o severe side effects, Free of Suicidal thoughts, Free of agitation, Normal sleep pattern, Ability to care for self, Reduction of target symptoms Discharge to:: Home, With Family - Treatment Team Participation Patient/Family/SO Statement: 02/28/18 16:14 Patient invited to tx team this morning to discuss progress on 3NP and tx goals. Pt. reported some improvement in sxs of depression since admission as evidenced by increase in energy and decrease in anger. Pt. reported feeling more in control of his emotions. Medication management discussed. Emotional support provided. Pt. able to explore healthy coping skills and identify triggers. Pt. denied SI/HI/AH/VH but continued to report sxs of depression, poor motivation and sleep disturbances. Pt. presents with fair insight into precursors to hospitalization, illness and need for tx. Pt. expressed being motivated for tx. Discussed with Family/SO: No Was Patient/Family/SO present at Treatment Team Meeting: Yes <Moi Casillas - Last Filed: 03/05/18 11:06> - Diagnosis (1) Bipolar disorder Status: Acute Interventions: psychotherapy pharmacotherapy 03/05/18 11:06 (2) Impulse control disease Status: Acute Interventions: psychotherapy pharmacotherapy 03/05/18 11:06
--- NOTE | 2018-02-25 08:51 | RAD ---
HISTORY: clearance COMPARISON: Chest radiographs 09/30/2015. FINDINGS: LUNGS: No active pulmonary disease. PLEURA: No significant pleural effusion identified, no pneumothorax apparent. CARDIOVASCULAR: Normal. OSSEOUS STRUCTURES: No significant abnormalities. VISUALIZED UPPER ABDOMEN: Nonspecific right hemidiaphragm elevation reiterated. OTHER FINDINGS: None. IMPRESSION: No interval acute cardiopulmonary disease appreciated. Right hemidiaphragm elevation not significantly changed.
[2018-02-25 09:26] LABS: T4 6.41 ug/dl (5.5-11.0)
--- NOTE | 2018-02-25 12:36 | CP.PCM.CON ---
History of Present Illness - History of Present Illness History of Present Illness: 27 y/o male with PMH, dyslipidemia, Schizoaffective disorder for many years , on multiple psychiatric meds ( see below) and with multiple prior psychiatric admissions came to ER for crisis eval for aggressive behaviour. As per patient he has been more agitated and aggressive lately towards others so understands that needs help. As per patient he follows up with his psychiatris DR Barbara Matthews regularly and takes his mediations regularly.Lately his psychiatrist has been tapering down his Seroquel and increasing the dose of Abilify. He states that has been having visual and auditory hallucinations , unable to sleep , agittaed and angry all the time. He is admitted in psych unit for management Medicine consulted. He states that sometime gets chest pain while lying down in bed , denies PND or orthopnea. States that was evaluated recently with swallow test and endoscopy for dysphagia and everything was fine. Complains of some left shoulder pain on and off and has decreased ROM since his surgery. Denies any cough, fever , chills, dysuria , changes in bowel movements. Allergies: NKDA PMH :Schizoafective disorder, Dyslipidemia Medications; Seroquel, Abilify,lithium,Klonopin, wellbutryn Surgery ; Left shoulder surgery, right ankle surgery ,4 molar removal Family history ; Aunt had mental illness, uncle has schizophrenia Social history ; Lives in [place] with mother,single, works apartment manager as school bus aid , denies smoking , ETOH or drug abuse ROS ; 10 point review of system negative except6 above Psychiatrist : Dr Matthews Review of Systems - Review of Systems All systems: reviewed and no additional remarkable complaints except Past Patient History - Infectious Disease Hx of Infectious Diseases: None - Tetanus Immunizations Tetanus Immunization: Unknown - Past Medical History & Family History Past Medical History?: Yes Past Family History: Reviewed and not pertinent - Past Social History Smoking Status: Never Smoked Chewing Tobacco Use: No Cigar Use: No Alcohol: None Drugs: Denies Home Situation {Lives}: With Family Domestic Violence: Negative - CARDIAC Hx Cardiac Disorders: Yes Hx Hypercholesterolemia: Yes Hx Hypertension: No (pt denied) - PULMONARY Hx Respiratory Disorders: No - NEUROLOGICAL Hx Neurological Disorder: No Hx Seizures: No (pt denied) - HEENT Hx HEENT Problems: Yes Other/Comment: difficulty swallowing - RENAL Hx Chronic Kidney Disease: No - ENDOCRINE/METABOLIC Hx Endocrine Disorders: No - HEMATOLOGICAL/ONCOLOGICAL Hx Human Immunodeficiency Virus (HIV): No (pt denied) - INTEGUMENTARY Hx Dermatological Problems: No - MUSCULOSKELETAL/RHEUMATOLOGICAL Hx Musculoskeletal Disorders: No - GASTROINTESTINAL Hx Gastrointestinal Disorders: No - GENITOURINARY/GYNECOLOGICAL Hx Genitourinary Disorders: No Hx Sexually Transmitted Disorders: No (pt denied) - PSYCHIATRIC Hx Depression: Yes Hx Schizophrenia: Yes Hx Substance Use: No - SURGICAL HISTORY Hx Appendectomy: No - ANESTHESIA Hx Anesthesia: Yes Hx Anesthesia Reactions: No Meds Allergies/Adverse Reactions: Allergies Allergy/AdvReac Type Severity Reaction Status Date / Time No Known Allergies Allergy Verified 02/24/18 18:28 - Medications Medications: Current Medications Acetaminophen (Tylenol 325mg Tab) 650 mg PO Q4 PRN PRN Reason: Pain, moderate (4-7) Al Hydrox/Mg Hydrox/Simethicone (Maalox Plus 30 Ml) 30 ml PO Q4 PRN PRN Reason: Dyspepsia Diphenhydramine HCl (Benadryl) 50 mg IM Q6 PRN PRN Reason: Extrapyramidal S/S Unable PO Diphenhydramine HCl (Benadryl) 50 mg PO Q6 PRN PRN Reason: Extrapyramidal Symptoms Haloperidol (Haldol) 5 mg PO Q4 PRN PRN Reason: Agitation Haloperidol Lactate (Haldol) 5 mg IM Q4 PRN PRN Reason: Agitation, Unable to Take PO Lorazepam (Ativan) 2 mg IM Q4 PRN PRN Reason: Anxiety/Agitation,Unable PO Lorazepam (Ativan) 1 mg PO Q4 PRN PRN Reason: Anxiety/Agitation Magnesium Hydroxide (Milk Of Magnesia) 30 ml PO HS PRN PRN Reason: Constipation Physical Exam - Constitutional Appears: Non-toxic, No Acute Distress - Head Exam Head Exam: ATRAUMATIC, NORMOCEPHALIC - Eye Exam Eye Exam: EOMI, PERRL Pupil Exam: NORMAL ACCOMODATION - ENT Exam ENT Exam: Mucous Membranes Moist, Normal Exam - Neck Exam Neck exam: Positive for: Full Rom, Normal Inspection - Respiratory Exam Respiratory Exam: Clear to Auscultation Bilateral, NORMAL BREATHING PATTERN. absent: Rales, Rhonchi, Wheezes - Cardiovascular Exam Cardiovascular Exam: REGULAR RHYTHM, RRR, +S1, +S2. absent: JVD - GI/Abdominal Exam GI & Abdominal Exam: Normal Bowel Sounds, Soft. absent: Distended, Guarding, Tenderness - Rectal Exam Rectal Exam: Deferred - Extremities Exam Extremities exam: Positive for: normal capillary refill, normal inspection, pedal pulses present. Negative for: calf tenderness, pedal edema - Back Exam Back exam: NORMAL INSPECTION - Neurological Exam Neurological exam: Alert, CN II-XII Intact, Oriented x3 - Psychiatric Exam Psychiatric exam: Anxious, Flat Affect - Skin Skin Exam: Dry, Normal Color, Warm Results - Vital Signs Recent Vital Signs: Last Vital Signs Temp 97.9 F 02/25/18 09:48 Pulse 75 02/25/18 09:48 Resp 18 02/25/18 09:48 BP 98/55 L 02/25/18 09:48 Pulse Ox 98 02/24/18 21:23 - Labs Result Diagrams: 02/24/18 19:39 02/24/18 19:39 Labs: Laboratory Results - last 24 hr 02/24/18 02/24/18 02/24/18 19:39 19:39 19:39 WBC 8.6 RBC 4.52 Hgb 13.7 Hct 41.0 MCV 90.7 MCH 30.2 MCHC 33.3 RDW 13.7 Plt Count 213 MPV 8.3 Neut % (Auto) 59.8 Lymph % (Auto) 32.8 [place] % (Auto) 6.4 Eos % (Auto) 0.5 Baso % (Auto) 0.5 Neut # (Auto) 5.1 Lymph # (Auto) 2.8 [place] # (Auto) 0.6 Eos # (Auto) 0.0 Baso # (Auto) 0.0 Sodium 143 Potassium 3.7 Chloride 105 Carbon Dioxide 27 Anion Gap 15 BUN 10 Creatinine 0.8 Est GFR ( Amer) > 60 Est GFR (Non-Af Amer) > 60 Random Glucose 96 Calcium 9.4 Total Bilirubin 0.6 AST 18 ALT 24 Alkaline Phosphatase 42 Total Protein 7.7 Albumin 4.4 Globulin 3.3 Albumin/Globulin Ratio 1.3 Triglycerides Cholesterol LDL Cholesterol Direct HDL Cholesterol Thyroxine (T4) TSH 3rd Generation Urine Color Urine Clarity Urine pH Ur Specific [place] Urine Protein Urine Glucose (UA) Urine Ketones Urine Blood Urine Nitrate Urine Bilirubin Urine Urobilinogen Ur Leukocyte Esterase Urine Opiates Screen Negative Urine Methadone Screen Negative Ur Barbiturates Screen Negative Ur Phencyclidine Scrn Negative Ur Amphetamines Screen Negative U Benzodiazepines Scrn Negative [place] U Oth Cocaine Metabols Negative U Cannabinoids Screen Negative Alcohol, Quantitative < 10 02/24/18 02/24/18 02/25/18 19:39 19:39 08:30 WBC RBC Hgb Hct MCV MCH MCHC RDW Plt Count MPV Neut % (Auto) Lymph % (Auto) [place] % (Auto) Eos % (Auto) Baso % (Auto) Neut # (Auto) Lymph # (Auto) [place] # (Auto) Eos # (Auto) Baso # (Auto) Sodium Potassium Chloride Carbon Dioxide Anion Gap BUN Creatinine Est GFR ( Amer) Est GFR (Non-Af Amer) Random Glucose Calcium Total Bilirubin AST ALT Alkaline Phosphatase Total Protein Albumin Globulin Albumin/Globulin Ratio Triglycerides 141 D Cholesterol 132 LDL Cholesterol Direct 65 HDL Cholesterol 38 Thyroxine (T4) 6.41 TSH 3rd Generation 2.69 Urine Color Colorless Urine Clarity Clear Urine pH 7.0 Ur Specific [place] < 1.005 Urine Protein Negative Urine Glucose (UA) Neg Urine Ketones Negative Urine Blood Negative Urine Nitrate Negative Urine Bilirubin Negative Urine Urobilinogen 0.2-1.0 Ur Leukocyte Esterase Neg Urine Opiates Screen Urine Methadone Screen Ur Barbiturates Screen Ur Phencyclidine Scrn Ur Amphetamines Screen U Benzodiazepines Scrn [place] 0.2 L U Oth Cocaine Metabols U Cannabinoids Screen Alcohol, Quantitative Assessment & Plan - Assessment and Plan (Free Text) Assessment: 27 y/o male with PMH, dyslipidemia, Schizoaffective disorder for many years , on multiple psychiatric meds ( see below) and with multiple prior psychiatric admissions came to ER for crisis eval for aggressive behaviour. As per patient he has been more agitated and aggressive lately towards others so understands that needs help. As per patient he follows up with his psychiatris DR Barbara Matthews regularly and takes his mediations regularly.Lately his psychiatrist has been tapering down his Seroquel and increasing the dose of Abilify. He states that has been having visual and auditory hallucinations , unable to sleep , agittaed and angry all the time. He is admitted in psych unit for management Medicine consulted. He states that sometime gets chest pain while lying down in bed , denies PND or orthopnea. States that was evaluated recently with swallow test and endoscopy for dysphagia and everything was fine. Complains of some left shoulder pain on and off and has decreased ROM since his surgery. Denies any cough, fever , chills, dysuria , changes in bowel movements. 1. Schizoaffective disorder Management as per psych unit 2. Dyslipidemia on Lovaza
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
--- NOTE | 2018-02-26 15:48 | PCM.PYCHPN ---
Psychiatric Progress Note - Psychiatric Progress Note Patient seen today, length of contact: pt evaluated discussed with team chart reviewed Patient Chief Complaint: I have an anger problem and I have suicidal thoughts Problems Identified/Issues Discussed: pt evaluated , presenting with depressed mood and affect, continues to express passive suicidal ideations, without active plan on the unit, reported episodes of anger and irritability discussed with pt to discontinue wellbutrin and seroquel with uptitrating abilify gradually discussed with pt imprtance of compliance with medications as lithium level noted to be 0.2 encouraged to attend groups, pt requesting referral to partial on discharge, denied any command hallucinations, DSM 5 Symptoms Update: schizoaffective disorder bipolar Medication Change: Yes (discontinue wellbutrin) Medical Record Reviewed: Yes Mental Status Examination - Cognitive Function Orientation: Person, Place, Situation, Time Attention: WNL Concentration: WNL Association: WNL Fund of Knowledge: WN Decription of patient's judgement and insights: partial insight , poor judgment - Mood Mood: Depressed, Anxious - Affect Affect: Constricted - Speech Speech: Appropriate - Formal Thought Process Formal Thought Process: Circumstantial Psychotic Thoughts and Behaviors: pt denied perceptual disturbances, non elicited - Suicidal Ideation Suicidal Ideation: No - Homicidal Ideation Homicidal Ideation: No Goal/Treatment Plan - Goal/Treatment Plan Need for Continued Stay: Severe depression anxiety, Discharge may exacerbated symptoms, Failed transitioning, Severe functional impairment Progress Toward Problem(s) and Goals/Treatment Plan: discontinue wellbutrin continue with li 900mg daily follow up on lithium level in 2days discontinue seroquel increase abilify gradually CBT group and supportive therapy Estimated Date of D/C: 03/02/18
--- NOTE | 2018-02-27 15:05 | PCM.PYCHPN ---
Psychiatric Progress Note - Psychiatric Progress Note Patient seen today, length of contact: pt evaluated discussed with team chart reviewed Patient Chief Complaint: I want to join [facility] Problems Identified/Issues Discussed: pt evaluated , reported feeling less depressed, stated having trouble with anger episodes at home and inability to control his behavior with his parents, CBT provided and discussed with pt possible coping skills with anger and the need to develop plan rather than acting out pt motivated to attend [facility] [place], discussed medication compliance and will follow up on lithium level , no reported side effects of medications encouraged to attend groups, , denied any suicidal or homicidal ideation, denied command hallucinations, DSM 5 Symptoms Update: schizoaffective disorder bipolar type Medication Change: No Medical Record Reviewed: Yes Mental Status Examination - Cognitive Function Orientation: Person, Place, Situation, Time Attention: WNL Concentration: WNL Association: WNL Fund of Knowledge: WN Decription of patient's judgement and insights: partial insight , poor judgment - Mood Mood: Depressed, Anxious - Affect Affect: Constricted - Speech Speech: Appropriate - Formal Thought Process Formal Thought Process: Circumstantial Psychotic Thoughts and Behaviors: pt denied perceptual disturbances, non elicited - Suicidal Ideation Suicidal Ideation: No - Homicidal Ideation Homicidal Ideation: No Goal/Treatment Plan - Goal/Treatment Plan Need for Continued Stay: Severe depression anxiety, Discharge may exacerbated symptoms, Failed transitioning, Severe functional impairment Progress Toward Problem(s) and Goals/Treatment Plan: continue with lithium 900mg daily follow up on lithium level tomorrow AM klonopin 0.5mg bid abilify 20mg CBT group and supportive therapy Estimated Date of D/C: 03/02/18
--- NOTE | 2018-02-28 16:13 | PCM.PYCHPN ---
Psychiatric Progress Note - Psychiatric Progress Note Patient seen today, length of contact: pt evaluated discussed with team chart reviewed Patient Chief Complaint: I am willing to restart the partial program Problems Identified/Issues Discussed: pt evaluated ,discussed the litium level 0.2, with possible non compliance, discussed reasons for non compliance pt reported concerns about weight gain, discussed alternatives, pt agreed to be started on trileptal with more favourable metabolic side effects , pt also would be continued on abilify discussed referral to [facility] on discharge pt agreed encouraged to attend groups, , denied any suicidal or homicidal ideation, denied command hallucinations, DSM 5 Symptoms Update: bipolar disorder mixed impulse control disorder Medication Change: Yes (start trileptal) Medical Record Reviewed: Yes Mental Status Examination - Cognitive Function Orientation: Person, Place, Situation, Time Attention: WNL Concentration: WNL Association: WNL Fund of Knowledge: [facility] Decription of patient's judgement and insights: partial insight , poor judgment - Mood Mood: Depressed, Anxious - Affect Affect: Constricted - Speech Speech: Appropriate - Formal Thought Process Formal Thought Process: Circumstantial Psychotic Thoughts and Behaviors: pt denied perceptual disturbances, non elicited - Suicidal Ideation Suicidal Ideation: No - Homicidal Ideation Homicidal Ideation: No Goal/Treatment Plan - Goal/Treatment Plan Need for Continued Stay: Severe depression anxiety, Discharge may exacerbated symptoms, Failed transitioning, Severe functional impairment Progress Toward Problem(s) and Goals/Treatment Plan: decrease lithium 300mg bid with plan to discontinue , start trileptal 300mg qhs , encourage medication compliance klonopin 0.5mg bid abilify 20mg CBT group and supportive therapy Estimated Date of D/C: 03/02/18
[2018-03-01 10:27] VITALS: RESP 18
--- NOTE | 2018-03-01 15:10 | PCM.PYCHPN ---
Psychiatric Progress Note - Psychiatric Progress Note Patient seen today, length of contact: pt evaluated discussed with team chart reviewed Patient Chief Complaint: I slept better with trilleptal Problems Identified/Issues Discussed: pt evaluated ,reported better sleep with trileptal, discussed cross titrating lithium with trileptal to ensure compliance for better side effect profile, pt compliant with treatment , attending groups , discussed the possibility of anger management therapy upon discharge , pt agreed , denied any suicidal or homicidal ideation, denied command hallucinations, DSM 5 Symptoms Update: bipolar disorder mixed Medication Change: Yes (increase trileptal) Medical Record Reviewed: Yes Mental Status Examination - Cognitive Function Orientation: Person, Place, Situation, Time Attention: WNL Concentration: WNL Association: WNL Fund of Knowledge: [facility] Decription of patient's judgement and insights: partial insight , poor judgment - Mood Mood: Depressed, Anxious - Affect Affect: Constricted - Speech Speech: Appropriate - Formal Thought Process Formal Thought Process: Circumstantial Psychotic Thoughts and Behaviors: pt denied perceptual disturbances, non elicited - Suicidal Ideation Suicidal Ideation: No - Homicidal Ideation Homicidal Ideation: No Goal/Treatment Plan - Goal/Treatment Plan Need for Continued Stay: Severe depression anxiety, Discharge may exacerbated symptoms, Failed transitioning, Severe functional impairment Progress Toward Problem(s) and Goals/Treatment Plan: discontinue lithium ,increase trileptal 600mg qhs , encourage medication compliance klonopin 0.5mg bid abilify 25mg daily CBT group and supportive therapy Estimated Date of D/C: 03/02/18
--- NOTE | 2018-03-02 16:28 | PCM.PYCHPN ---
Psychiatric Progress Note - Psychiatric Progress Note Patient seen today, length of contact: pt evaluated discussed with team chart reviewed Patient Chief Complaint: I feel in better control with trileptal Problems Identified/Issues Discussed: pt evaluated ,reported better mood control with trileptal, discussed up titrating trileptal to ensure therapeutic level , pt denied any current side effects , attending groups , discussed the possibility of anger management therapy upon discharge , pt agreed to attend [facility] program on discharge , denied any suicidal or homicidal ideation, denied command hallucinations, DSM 5 Symptoms Update: bipolar disorder mixed Medication Change: Yes (increase trileptal) Medical Record Reviewed: Yes Mental Status Examination - Cognitive Function Orientation: Person, Place, Situation, Time Attention: WNL Concentration: WNL Association: WNL Fund of Knowledge: [facility] Decription of patient's judgement and insights: partial insight , poor judgment - Mood Mood: Depressed, Anxious - Affect Affect: Constricted - Speech Speech: Appropriate - Formal Thought Process Formal Thought Process: Circumstantial Psychotic Thoughts and Behaviors: pt denied perceptual disturbances, non elicited - Suicidal Ideation Suicidal Ideation: No - Homicidal Ideation Homicidal Ideation: No Goal/Treatment Plan - Goal/Treatment Plan Need for Continued Stay: Severe depression anxiety, Discharge may exacerbated symptoms, Failed transitioning, Severe functional impairment Progress Toward Problem(s) and Goals/Treatment Plan: increase trileptal 300mg daily and 600mg qhs , encourage medication compliance klonopin 0.5mg bid abilify 25mg daily CBT group and supportive therapy Estimated Date of D/C: 03/05/18
--- NOTE | 2018-03-03 11:42 | PCM.PYCHPN ---
Psychiatric Progress Note - Psychiatric Progress Note Patient seen today, length of contact: pt evaluated discussed with team chart reviewed Patient Chief Complaint: pt is doing better on the current regimen of abilify and trileptal and is less depressed and less anxious and denies suicidal ideation. no side effects to meds . Medication Change: Yes (increase trileptal) Medical Record Reviewed: Yes Mental Status Examination - Cognitive Function Orientation: Person, Place, Situation, Time Attention: WNL Concentration: WNL Association: WNL Fund of Knowledge: WNL - Mood Mood: Depressed, Anxious - Affect Affect: Constricted - Speech Speech: Appropriate - Formal Thought Process Formal Thought Process: Circumstantial - Suicidal Ideation Suicidal Ideation: No - Homicidal Ideation Homicidal Ideation: No Goal/Treatment Plan - Goal/Treatment Plan Need for Continued Stay: Severe depression anxiety, Discharge may exacerbated symptoms, Failed transitioning, Severe functional impairment Progress Toward Problem(s) and Goals/Treatment Plan: will continue to titrate meds to stabilize pt. d/c plans as per dr gomez Estimated Date of D/C: 03/05/18
--- NOTE | 2018-03-04 11:16 | PCM.PYCHPN ---
Psychiatric Progress Note - Psychiatric Progress Note Patient seen today, length of contact: pt evaluated discussed with team chart reviewed Patient Chief Complaint: pt still feels anxious but otherwise is doing better on the current regimen of abilify and trileptal and is less depressed and less anxious and denies suicidal ideation. no side effects to meds . Medication Change: Yes (increase trileptal) Medical Record Reviewed: Yes Mental Status Examination - Cognitive Function Orientation: Person, Place, Situation, Time Attention: WNL Concentration: WNL Association: WNL Fund of Knowledge: WNL - Mood Mood: Depressed, Anxious - Affect Affect: Constricted - Speech Speech: Appropriate - Formal Thought Process Formal Thought Process: Circumstantial - Suicidal Ideation Suicidal Ideation: No - Homicidal Ideation Homicidal Ideation: No Goal/Treatment Plan - Goal/Treatment Plan Need for Continued Stay: Severe depression anxiety, Discharge may exacerbated symptoms, Failed transitioning, Severe functional impairment Progress Toward Problem(s) and Goals/Treatment Plan: will continue to titrate meds to stabilize pt. monica add klonopin 0.5 mg bid d/c plans as per dr gomez Estimated Date of D/C: 03/05/18
[2018-03-05 09:15] VITALS: BP 114/66; PULSE 61; TEMP 97.2
--- NOTE | 2018-03-05 14:23 | PCM.PYCHDC ---
Mental Status Examination - Mental Status Examination Orientation: Person, Place, Situation Memory: Intact Mood: Neutral Affect: Broad Speech: Appropriate Attention: WNL Concentration: WNL Association: WNL Fund of Knowledge: WNL Formal Thought Process: No Impairment Description of patient's judgement and insight: partial insight , poor judgment Psychotic Thoughts and Behaviors: pt denied perceptual disturbances, non elicited Suicidal Ideation: No Current Homicidal Ideation?: No Discharge Summary - Discharge Note Reason for Hospitalization: several day s prior to presentation increasing anger yelling, irritability was concerned that he would take it out on his mother denies physical agression. 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 is seeing a private psychiatrist [facility]-has been taking lithium 300mg po tid , abilify 30mg po day. previously treated in [facility] and completed ph program of two years. Consultations:: List each consultation separately and include: 1. Reason for request. 2. Findings. 3. Follow-up Summary of Hospital Course include:: 1. Description of specific treatment plan utilized for patients during their course of treatmen. 2. Summarize the time- course for resolution of acute symptoms and/or regressed behaviors. 3. Describe issues identified and worked on during hospitalization. 4. Describe medication utilized. 5. Describe medical problems identified and treated. 6. Reassessment of suicide risk Summary of Hospital Course: pt on admission was restarted on abilify and lithium and 50mg qhs seroquel with plan to discontinue pt lithium level after being restarted was 0.2, raising compliance questions, on discussion with pt he reported concerns about side effects including sedation and weight gain, discussed with pt alternatives to ensure compliance pt ewas started on trileptal for more favorable side effect it was uptitrated to 900 mg daily , pt was also started on abilify it was increased to 25mg daily pt was compliant , no reported side effects of medications attended groups, agreed to re attend partial program on discharge mental status was stable pt denied any current suicidal or homicidal ideation denied perceptual disturbances - Diagnosis (1) Bipolar disorder Status: Acute (2) Impulse control disease Status: Acute - Final Diagnosis (DSM 5) Condition upon Discharge: FAIR DSM 5: bipolar I disorder mixed severe without psychotic features Disposition: HOME/ ROUTINE Follow-up Treatment Plan: increase trileptal 300mg daily and 600mg qhs , encourage medication compliance klonopin 0.5mg bid abilify 25mg daily CBT group and supportive therapy Prescriptions/Medication Reconciliation: ARIPiprazole [Abilify] 25 mg PO DAILY 30 Days #150 tab clonazePAM [Klonopin] 0.5 mg PO BID #60 tab OXcarbazepine [Trileptal] 300 mg PO DAILY 30 Days #30 tab OXcarbazepine [Trileptal] 600 mg PO HS 30 Days #60 tab traZODone [Desyrel] 100 mg PO HS 30 Days #30 tab - Antipsychotic Medications Pt discharged on 2 or more routine antipsychotic medications: No
== END 2018-03-05 12:20 | disposition home or self-care (01) | DRG 885 ==
LOC: H.ER 18:23 → H.ERHOLD 20:52 → H.PSYCH 22:19
PROVIDERS: ADMIT Psychiatry & Neurology Psychiatry; ATTEND Psychiatry & Neurology Psychiatry
PROC: GZHZZZZ Group Psychotherapy (ICD-10-PCS; principal; 2018-02-24)
PROC: GZ58ZZZ Individual Psychotherapy, Cognitive-Behavioral (ICD-10-PCS; 2018-02-24)
DX: F25.0 Schizoaffective disorder, bipolar type (principal); F31.63 Bipolar disorder, current episode mixed, severe, without psychotic features; R45.851 Suicidal ideations; F63.9 Impulse disorder, unspecified; F41.9 Anxiety disorder, unspecified; E78.5 Hyperlipidemia, unspecified; E78.00 Pure hypercholesterolemia, unspecified; M25.512 Pain in left shoulder; Z81.8 Family history of other mental and behavioral disorders

== ENCOUNTER 2018-04-16 12:20 | Emergency (ER) | payer MEDICARE, MEDICAID ==
[2018-04-16 12:46] VITALS: RESP 18; O2SAT 99
[2018-04-16] MEDS ORDERED: Naproxen 500 MG TAB PO STA (13:13)
[2018-04-16] MEDS ORDERED: Naproxen 500 MG TAB PO ONE (13:20)
--- NOTE | 2018-04-16 13:22 | ED PDOC ---
HPI: Back Time Seen by Provider: 04/16/18 12:51 Chief Complaint (Nursing): Back Pain Chief Complaint (Provider): Back Pain History Per: Patient History/Exam Limitations: no limitations Onset/Duration Of Symptoms: Days (x9) Current Symptoms Are (Timing): Still Present Additional Complaint(s): 27 y/o male with a PMHx of schizophrenia and bipolar disorder (type II) presents to the ED for evaluation of persistent lower back pain after slip and fall on 04/07/2018 and landed on buttock. Patient reports that initially there was no pain. However, approximately two to three days after fall, pain began to develop and worsen. Otherwise: (-) medications prior to arrival, (-) associated symptoms, (-) saddle anesthesia, (-) fever, (-) chills, (-) incontinence, (-) weakness, (-) numbness, (-) paresthesia, (-) abdominal pain, (-) chest pain, (- ) head injury at the time of the fall. PMD: Dr. Canas Past Medical History Reviewed: Historical Data, Nursing Documentation, Vital Signs Vital Signs: Last Vital Signs Temp 99.2 F 04/16/18 12:43 Pulse 70 04/16/18 12:43 Resp 18 04/16/18 12:43 BP 119/70 04/16/18 12:43 Pulse Ox 99 04/16/18 12:43 - Medical History PMH: Anxiety, Bipolar Disorder, Depression, Hypercholesterolemia, Schizophrenia - Surgical History Surgical History: Endoscopy Denies: Appendectomy - Family History Family History: States: Unknown Family Hx - Immunization History Hx Tetanus Toxoid Vaccination: No Hx Influenza Vaccination: No Hx Pneumococcal Vaccination: No - Home Medications Home Medications: Ambulatory Orders Medication Instructions Recorded Multivit-Minerals/FA/Lycopene [One 1 each PO DAILY 02/24/18 Daily For Men Tablet] Yverj-3-Qihf Ethyl Esters 1 GM 1 gm PO DAILY 02/24/18 [Lovaza] ARIPiprazole [Abilify] 25 mg PO DAILY 30 Days #150 tab 03/05/18 OXcarbazepine [Trileptal] 300 mg PO DAILY 30 Days #30 tab 03/05/18 OXcarbazepine [Trileptal] 600 mg PO HS 30 Days #60 tab 03/05/18 clonazePAM [Klonopin] 0.5 mg PO BID #60 tab 03/05/18 traZODone [Desyrel] 100 mg PO HS 30 Days #30 tab 03/05/18 Ibuprofen [Motrin Tab] 600 mg PO Q6 #20 tab 04/16/18 - Allergies Allergies/Adverse Reactions: Allergies Allergy/AdvReac Type Severity Reaction Status Date / Time No Known Allergies Allergy Verified 02/24/18 18:28 Review of Systems ROS Statement: Except As Marked, All Systems Reviewed And Found Negative Constitutional: Negative for: Fever, Chills Cardiovascular: Negative for: Chest Pain Gastrointestinal: Negative for: Abdominal Pain Genitourinary Male: Negative for: Incontinence Musculoskeletal: Positive for: Back Pain (lower) Neurological: Negative for: Weakness, Numbness Physical Exam - Reviewed Nursing Documentation Reviewed: Yes Vital Signs Reviewed: Yes - Physical Exam Comments: GENERAL APPEARANCE: Patient is awake, alert, oriented x 3, in no acute distress. SKIN: Warm, dry; (-) cyanosis. No overlying skin changes EYES: (-) conjunctival pallor. ENMT: Mucous membranes moist. NECK: (-) tenderness, (-) stiffness, (-) lymphadenopathy. CHEST AND RESPIRATORY: (-) rales, (-) rhonchi, (-) wheezes; breath sounds equal bilaterally. HEART AND CARDIOVASCULAR: (-) irregularity; (-) murmur, (-) gallop. ABDOMEN AND GI: Soft; (-) tenderness; (-) palpable mass. BACK: (+) midline lumbar and sacrum tenderness, (+) paralumbar tenderness, (+) mild spasm, (-) direct bony tenderness, (-) deformity. Straight leg raising (- ) bilaterally. EXTREMITIES: (-) deformity. Distal pulses good bilaterally. NEURO AND PSYCH: Mental status as above. Intact sensation bilaterally; normal strength in extension of the knees, plantar and dorsiflexion of the toes. DTRs symmetric. - ECG O2 Sat by Pulse Oximetry: 99 (RA) Pulse Ox Interpretation: Normal Medical Decision Making Medical Decision Making: Time: 1313 Impression: Acute back pain, Contusion vs. Fracture Plan: -- Lumbar Spine Complete XR -- Naproxen 500 mg PO -- Re-evaluation Time: 1348 LUMBAR SPINE XR RESULTS FINDINGS: BONES: There is normal alignment of the lumbar vertebral bodies. There is normal lumbar lordosis. There is no acute fracture, spondylolysis or spondylolisthesis. Bone mineralization is normal. DISC SPACES: The disc heights are maintained. OTHER FINDINGS: There are no pathologic soft tissue calcification. Both sacroiliac joints are normal. IMPRESSION: No acute fracture, spondylolysis or spondylolisthesis. 1350 On re-evaluation, patient reports improvement of symptoms. On exam, patient remains AAOx3, in no acute distress. On exam, neck is supple, lungs CTA, cardiac RRR, abdomen is soft and non-tender, neuro exam shows no focal findings. VSS, stable for discharge. Diagnostic results d/w the patient in great detail. Dx of acute back pain s/p fall d/w the patient. Based on history, exam and diagnostic results plan will be for discharge and outpatient follow up. Advised to follow up with primary care physician in 1-2 days without fail. Advised to take medication as prescribed. Return to the emergency room at any time for any new or worsening symptoms. Patient states he fully agrees with and understands discharge instructions. States that he agrees with the plan and disposition. Verbalized and repeated discharge instructions and plan. I have given the patient opportunity to ask any additional questions. Scribe Attestation: Documented by Ayden Bronson, acting as a scribe for Misa Solomon PA-C. Provider Scribe Attestation: All medical record entries made by the Scribe were at my direction and personally dictated by me. I have reviewed the chart and agree that the record accurately reflects my personal performance of the history, physical exam, medical decision making, and the department course for this patient. I have also personally directed, reviewed, and agree with the discharge instructions and disposition. Disposition - Clinical Impression Clinical Impression: Back pain, Fall - Patient ED Disposition Is Patient to be Admitted: No Counseled Patient/Family Regarding: Studies Performed, Diagnosis, Need For Followup, Rx Given - Disposition Referrals: PanAna bojorquez MD [Medical Doctor] - Maurice Salazar MD [Medical Doctor] - Disposition: Routine/Home Disposition Time: 13:54 Condition: STABLE Additional Instructions: The emergency medical care you received today was directed at your acute symptoms. If you were prescribed any medication, please fill it and take as directed. It may take several days for your symptoms to resolve. Return to the Emergency Department if your symptoms worsen, do not improve, or if you have any other problems. Please contact your doctor in 2 days for re-evaluation and follow up / or call one of the physicians/clinics you have been referred to that are listed on the Patient Visit Information form that is included in your discharge packet. Bring any paperwork you were given at discharge with you along with any medications you are taking to your follow up visit. Our treatment cannot replace ongoing medical care by a primary care provider (PCP) outside of the emergency department. Prescriptions: Ibuprofen [Motrin Tab] 600 mg PO Q6 #20 tab Instructions: Low Back Pain in Adults Forms: [facility] (Croatian) Print Language: CITIZEN OF [place] - POA Present On Arrival: Falls Or Trauma
--- NOTE | 2018-04-16 13:50 | RAD ---
Date of service: 04/16/2018 PROCEDURE: Radiographs of the Lumbar Spine. HISTORY: s/p fall 04/07/18, persistent pain COMPARISON: No prior. FINDINGS: BONES: There is normal alignment of the lumbar vertebral bodies. There is normal lumbar lordosis. There is no acute fracture, spondylolysis or spondylolisthesis. Bone mineralization is normal. DISC SPACES: The disc heights are maintained. OTHER FINDINGS: There are no pathologic soft tissue calcification. Both sacroiliac joints are normal. IMPRESSION: No acute fracture, spondylolysis or spondylolisthesis.
[2018-04-16 14:12] VITALS: BP 122/78; PULSE 78; TEMP 98
== END 2018-04-16 14:11 | disposition home or self-care (01) ==
LOC: H.ER 12:20
DX: M54.9 Dorsalgia, unspecified (principal)